=== PATIENT | male | born 1960 | race Native Hawaiian/Other Pacific Islander ===

== ENCOUNTER 2023-02-23 12:31 | Emergency (ER) | payer OTHER ==
[~2023-02-23] VITALS: Ht 185.4 cm; Wt 98.4 kg
[2023-02-23 12:35] VITALS: BP 142/84; TEMP 97.9
== END 2023-02-23 13:41 | disposition home or self-care (01) ==
LOC: ED 12:31
DX: L03.116 Cellulitis of left lower limb (principal); T25.232A Burn of second degree of left toe(s) (nail), initial encounter; T31.0 Burns involving less than 10% of body surface; X03.0XXA Exposure to flames in controlled fire, not in building or structure, initial encounter; Y92.89 Other specified places as the place of occurrence of the external cause
CPT/HCPCS: 96372; 99283; J0696; J1885; J2001

== ENCOUNTER 2023-03-15 09:35 | Emergency (ER) | payer OTHER ==
[~2023-03-15] VITALS: Ht 185.4 cm; Wt 97.5 kg
[2023-03-15 09:35] VITALS: TEMP 98.3
[2023-03-15 09:54] LABS: PLATELET COUNT 172 K/uL (142-355)
[2023-03-15 10:15] LABS: PARTIAL THROMBOPLASTIN TIME 29.9 SECONDS (24.5-33.6)
[2023-03-15 10:20] VITALS: BP 124/89
== END 2023-03-15 10:28 | disposition short-term general hospital (02) ==
LOC: ED 09:35
PROVIDERS: Internal Medicine
DX: I21.3 ST elevation (STEMI) myocardial infarction of unspecified site (principal); F17.210 Nicotine dependence, cigarettes, uncomplicated
CPT/HCPCS: 36415; 80053; 84484; 85027; 85610; 85730; 93005; 96365; 96375; 99285; J1644; J2270; J2405

== ENCOUNTER 2023-07-22 16:25 | Outpatient (CLI) | payer OTHER | END 2023-07-22 19:31 | disposition home or self-care (01) | LOC: RAD 16:25 | PROVIDERS: ATTEND Nurse Practitioner Family | DX: M79.672 Pain in left foot (principal) ==

== ENCOUNTER 2023-07-27 14:10 | Observation (INO) | payer OTHER ==
[~2023-07-27] VITALS: Ht 185.4 cm; Wt 92.7 kg
[2023-07-27 14:15] VITALS: BP 107/69; TEMP 98.2
[2023-07-27 15:24] LABS: PLATELET COUNT 223 K/uL (142-355)
[2023-07-27 15:31] LABS: POTASSIUM 3.5 mmol/L (3.6-5.2)
[2023-07-27] MEDS ORDERED: CEPHALEXIN500 MG PO (18:22)
[2023-07-27] MEDS ORDERED: NEURONTIN 100M100 MG PO (18:22)
[2023-07-27] MEDS ORDERED: CARV12.5 PO (18:22)
[2023-07-27] MEDS ORDERED: SPIRONOLACT25 MG PO (18:23)
[2023-07-27] MEDS ORDERED: AMIODARONE HYD200 MG PO (18:24)
[2023-07-27] MEDS ORDERED: FUROSEMIDE20 MG PO (18:25)
[2023-07-27] MEDS ORDERED: ELIQUIS5 MG PO (18:25)
[2023-07-27] MEDS ORDERED: COZAAR25 MG PO (18:26)
[2023-07-27 18:41] VITALS: BP 144/74; TEMP 97.4; Ht 185.4 cm; Wt 92.7 kg
[2023-07-27 20:29] VITALS: BP 154/68; TEMP 97.5
[2023-07-28] VITALS: BP 123/66; TEMP 97.7
[2023-07-28 04:00] VITALS: BP 131/76; TEMP 97.5
[2023-07-28 05:49] LABS: PLATELET COUNT 189 K/uL (142-355)
[2023-07-28 05:50] LABS: POTASSIUM 3.4 mmol/L (3.6-5.2)
[2023-07-28 08:21] VITALS: BP 130/82; TEMP 97.8
[2023-07-28 12:00] VITALS: BP 141/81; TEMP 98
[2023-07-28] MEDS ORDERED: CLINDAMYCIN HY300 MG PO (15:08)
== END 2023-07-28 15:33 | disposition home or self-care (01) ==
LOC: ED 14:10 → MED/SURG 16:16
PROVIDERS: Family Medicine; ADMIT Internal Medicine; ATTEND Internal Medicine
DX: L03.116 Cellulitis of left lower limb (principal); I48.91 Unspecified atrial fibrillation; Z79.01 Long term (current) use of anticoagulants; I50.9 Heart failure, unspecified; G62.89 Other specified polyneuropathies; K21.9 Gastro-esophageal reflux disease without esophagitis; F17.210 Nicotine dependence, cigarettes, uncomplicated; R60.0 Localized edema; I11.0 Hypertensive heart disease with heart failure
CPT/HCPCS: 36415; 80048; 80053; 82550; 83605; 85027; 85379; 87040; 96361; 96365; 96366; 96367; 99221; 99284; G0378; J0696; J1885